=== PATIENT | male | born 1960 | race American Indian/Alaskan Native ===

== ENCOUNTER 2017-06-13 18:25 | Emergency (ER) | payer MEDICAID ==
[2017-06-13 18:30] VITALS: BMI 25.7
[2017-06-13 18:35] VITALS: RESP 18
--- NOTE | 2017-06-13 18:49 | ED PDOC ---
Arrival/HPI - General Chief Complaint: Alcohol Ingestion Time Seen by Provider: 06/13/17 18:31 Historian: Patient - History of Present Illness Narrative History of Present Illness (Text): 06/13/17 18:43 This 56 yo male is brought to this ED by S for alcohol intoxication. Ambulance personnel stated patient was wandering on the street. Patient stated he drank a "couple of beers", when ambulance picked him up. Patient denies psychiatric, or past medical history. Patient denies being homeless. Patient denies trauma, head injury, n/v, abdominal pain, urinary symptoms, fever, SI. HI , or illegal drug use. Patient denies other somatic complains. Time/Duration: Other (see hpi) Context: Home Past Medical History - Provider Review Nursing Documentation Reviewed: Yes - Infectious Disease Hx of Infectious Diseases: None - Psychiatric Hx Substance Use: No - Anesthesia Hx Anesthesia: No Hx Anesthesia Reactions: No Hx Malignant Hyperthermia: No Family/Social History - Physician Review Nursing Documentation Reviewed: Yes Family/Social History: Other (noncontributory) Smoking Status: UTO Hx Alcohol Use: Yes Frequency of alcohol use: Daily Hx Substance Use: No Allergies/Home Meds Allergies/Adverse Reactions: Allergies No Known Allergies Allergy (Verified 01/26/12 17:28) Home Medications: Home Meds Medication Instructions Recorded Confirmed Unobtainable 06/13/17 06/13/17 Review of Systems - Review of Systems Systems not reviewed;Unavailable: Other (Patient is intoxicated but he is answering questions) Constitutional: Normal Eyes: Normal ENT: Normal. absent: Sore Throat, Rhinorrhea Respiratory: Normal. absent: SOB, Cough Cardiovascular: Normal. absent: Chest Pain Gastrointestinal: Normal. absent: Abdominal Pain, Nausea, Vomiting Genitourinary Male: Normal. absent: Dysuria, Frequency, Hematuria Musculoskeletal: Normal Skin: Normal Neurological: Normal. absent: Headache, Dizziness, Focal Weakness, Gait Changes , Speech Changes Endocrine: Normal Hemo/Lymphatic: Normal Psychiatric: Normal Physical Exam Vital Signs Temp Pulse Resp BP Pulse Ox 06/13/17 22:08 78 18 128/76 98 06/13/17 20:41 80 18 127/83 97 06/13/17 18:34 98.6 F 90 18 138/89 97 Temperature: Afebrile Blood Pressure: Normal Pulse: Regular Respiratory Rate: Normal Appearance: Positive for: Well-Appearing, Non-Toxic, Comfortable Pain Distress: None - Systems Exam Head: Present: Atraumatic, Normocephalic Pupils: Present: PERRL Extroacular Muscles: Present: EOMI Conjunctiva: Present: Normal Mouth: Present: Moist Mucous Membranes Neck: Present: Normal Range of Motion Respiratory/Chest: Present: Clear to Auscultation, Good Air Exchange. No: Respiratory Distress, Accessory Muscle Use Cardiovascular: Present: Regular Rate and Rhythm, Normal S1, S2. No: Murmurs Abdomen: Present: Normal Bowel Sounds. No: Tenderness, Distention, Peritoneal Signs Back: Present: Normal Inspection. No: CVA Tenderness Upper Extremity: Present: Normal Inspection. No: Cyanosis, Edema Lower Extremity: Present: Normal Inspection. No: Edema Neurological: Present: GCS=15, CN II-XII Intact, Speech Normal, Motor Func Grossly Intact, Normal Sensory Function, Normal Cerebellar Funct Skin: Present: Warm, Dry, Normal Color. No: Rashes Psychiatric: Present: Alert, Intoxicated Medical Decision Making ED Course and Treatment: 06/13/17 21:01 Patient is sleeping comfortable. 06/14/17 00:19 Re-evaluation. Patient feels better. Discussed results and plan with patient who expresses understanding. All questions answered and there is agreement with the plan to discharge home with instructions. Patient stable for discharge. Return if symptoms persist or worsen. Re-evaluation Time: 00:20 Reassessment Condition: Re-examined, Improved - Medication Orders Current Medication Orders: Discontinued Medications Lorazepam (Ativan) 2 mg IM ONCE ONE PRN Reason: Protocol Stop: 06/13/17 19:27 Last Admin: 06/13/17 19:44 Dose: 2 mg IM Administration Charges Document 06/13/17 19:44 HI (Rec: 06/13/17 19:44 [facility] [id number]) Injection Site MAR Injection Site Left Deltoid Charges for Administration # of IM Administrations 1 Thiamine HCl (Vitamin B1 Inj) 100 mg IM STAT STA Stop: 06/13/17 18:51 Last Admin: 06/13/17 19:44 Dose: 100 mg IM Administration Charges Document 06/13/17 19:44 HI (Rec: 06/13/17 19:44 [facility] [id number]) Injection Site MAR Injection Site Right Deltoid Charges for Administration # of IM Administrations 1 Disposition/Present on Arrival - Present on Arrival Any Indicators Present on Arrival: No History of DVT/PE: No History of Uncontrolled Diabetes: No Urinary Catheter: No History of Decub. Ulcer: No History Surgical Site Infection Following: None - Disposition Have Diagnosis and Disposition been Completed?: Yes Diagnosis: Alcohol intoxication Disposition: HOME/ ROUTINE Disposition Time: 00:23 Patient Plan: Discharge Condition: GOOD Discharge Instructions (ExitCare): Alcohol Abuse and Alcoholism (DC) Additional Instructions: Call private doctor for follow up visit in 1-2 days. You need to go to alcoholic anonymous. Referrals: [facility], [Primary Care Provider] - Follow up with primary [facility] [Outside] - Follow up with primary Forms: [employer] ([place])
[2017-06-13] MEDS ORDERED: Thiamine 100 mg/ml Inj IM STA (18:50)
[2017-06-14 00:36] VITALS: BP 135/78; PULSE 82; TEMP 98.2; O2SAT 100
== END 2017-06-14 00:36 | disposition home or self-care (01) ==
LOC: ED 18:25
DX: F10.129 Alcohol abuse with intoxication, unspecified (principal); Y90.9 Presence of alcohol in blood, level not specified
CPT/HCPCS: 96372; 99284; J2060; J3411